=== PATIENT | female | born 1980 | race African-American/Black ===

== ENCOUNTER 2021-12-11 06:52 | Emergency (ER) | payer BC ==
[2021-12-11 07:27] VITALS: BP 120/73; PULSE 87; TEMP 98.3; BMI 27.7
== END 2021-12-11 10:26 | disposition home or self-care (01) ==
LOC: JERFT 06:52
DX: R51.9 Headache, unspecified (principal); M54.50 Low back pain, unspecified; W00.0XXA Fall on same level due to ice and snow, initial encounter
CPT/HCPCS: 70450-TC; 99284-25

== ENCOUNTER 2022-03-28 06:52 | Emergency (ER) | payer BC ==
[2022-03-28 08:09] VITALS: BP 101/70; PULSE 68; TEMP 97.5; BMI 24.5
[2022-03-28] MEDS ORDERED: ACETAMINOPHEN 325 MG TABLET (FP) PO ONE (08:25)
[2022-03-28] MEDS ORDERED: ACETAMINOPHEN 325 MG TABLET (FP) ONE (08:32)
== END 2022-03-28 09:35 | disposition left against medical advice (07) ==
LOC: JER 06:52
DX: K08.89 Other specified disorders of teeth and supporting structures (principal)
CPT/HCPCS: 84703; 99285-25

== ENCOUNTER 2023-09-19 09:35 | Emergency (ER) | payer OTHER, BC ==
[2023-09-19 09:39] VITALS: BP 162/75; PULSE 92; RESP 18; TEMP 98.4; BMI 24.2
[2023-09-19] MEDS ORDERED: FLUCONAZOLE 150 MG TABLET PO ONE ×2 (10:24→10:32)
[2023-09-19 11:07] LABS: HCG,QUALITATIVE URINE Negative
[2023-09-19 11:08] LABS: EPI CELLS >36 /uL (0-25.1); HYALINE CASTS 1 /uL (0-3.1); URINE APPEARANCE CLEAR; URINE BACTERIA 18 /uL (0-1359); URINE BILIRUBIN NEGATIVE (NEGATIVE); URINE COLOR YELLOW; URINE GLUCOSE (UA) NEGATIVE (NEGATIVE); URINE KETONE NEGATIVE (NEGATIVE); URINE LEUK ESTERASE TRACE (NEGATIVE); URINE NITRITE NEGATIVE (NEGATIVE); URINE PROTEIN NEGATIVE (NEGATIVE); URINE RBC 10 /uL (0-23.9); URINE UROBILINOGEN 0.2 mg/dL (0.2-1.0); URINE WBC 8 /uL (0-25.8)
== END 2023-09-19 12:07 | disposition home or self-care (01) ==
LOC: JERFT 09:35
DX: L29.2 Pruritus vulvae (principal)
CPT/HCPCS: 36415; 81003; 84703; 87077; 87086; 87491; 87591; 99283-25

== ENCOUNTER 2023-10-03 11:33 | Emergency (ER) | payer OTHER, BC ==
[2023-10-03 11:35] VITALS: BP 127/82; PULSE 85; RESP 18; TEMP 97.8; BMI 24.2
[2023-10-03 13:26] LABS: EPI CELLS >36 /uL (0-25.1); HYALINE CASTS 4 /uL (0-3.1); URINE APPEARANCE CLOUDY; URINE BACTERIA 4811 /uL (0-1359); URINE BILIRUBIN NEGATIVE (NEGATIVE); URINE COLOR YELLOW; URINE GLUCOSE (UA) NEGATIVE (NEGATIVE); URINE KETONE NEGATIVE (NEGATIVE); URINE LEUK ESTERASE 3+ (NEGATIVE); URINE NITRITE NEGATIVE (NEGATIVE); URINE PROTEIN TRACE (NEGATIVE); URINE RBC 19 /uL (0-23.9); URINE UROBILINOGEN 0.2 mg/dL (0.2-1.0); URINE WBC 1241 /uL (0-25.8)
[2023-10-03 13:58] LABS: YEAST NONE SEEN (NEGATIVE)
[2023-10-03 15:14] LABS: SYPHILIS W/ RPR CONF NON-REACTIVE (NONREACTIVE)
[2023-10-03 15:44] LABS: HIV INTERPRETATION NEGATIVE (NEGATIVE)
== END 2023-10-03 13:38 | disposition home or self-care (01) ==
LOC: JERFT 11:33 → JER 11:33 → JERFT 13:38
DX: B37.31 Acute candidiasis of vulva and vagina (principal); N89.8 Other specified noninflammatory disorders of vagina
CPT/HCPCS: 36415; 81003; 86705; 86780; 87070; 87077; 87086; 87205; 87340; 87389; 87491; 87517; 87591; 87661; 99283-25